=== PATIENT | female | born 1960 | race Caucasian/White ===

== ENCOUNTER 2016-08-05 20:47 | Emergency (ER) | payer OTHER ==
--- NOTE | ~2016-08-05 | CR63 ---
[facility]. [facility] A Service of [facility] & [facility] RADIOLOGY TEXT RESULTS PATIENT: SANDRA ANN LOCATION: SED : 56 UNIT #: [id number] AGE: [address]: Maverick Terrell MD SEX: F ORDER DR: [id number] [address] [id number] MR#: [id number] Acc #: [id number] NAME: SANDRA ANN : 1960 SEX: F STUDY DATE/TIME: 08/05/2016 21:24 UNIT: SED ROOM: STUDY DESCRIPTION: CR Chest 2 View Attending Physician: Maverick Terrell M.D. Ordering Physician: Maverick Terrell M.D. Primary Care Physician: Rita Holloway A.P.R.N. MEDICAL IMAGING REPORT This report is preliminary unless electronic signature is present. EXAM PA and lateral chest 2 views 08/05/2016 COMPARISON 11/07/2014. CLINICAL HISTORY Cough for 3 days. FINDINGS There is old granulomatous disease but no acute abnormality. There is no consolidation, effusion or pneumothorax or suspicious nodule. Heart size within normal limits. Dictated by... Rolando Araujo M.D. THIS IS AN ELECTRONICALLY VERIFIED REPORT Rolando Araujo M.D. at 08/08/2016 5:35 PM ORIANA/dread TD: 08/06/2016 06:30 JOB #: [id number] MEDICAL IMAGING REPORT Page 1 of 1
[~2016-08-05 20:47] MED LIST: ALBUTEROL17 GM INH; AMARYL2 MG PO; BACITRACIN OP3.5 GM OD; CITALOPRAM HBR40 MG PO; HYDROXYZINE HCL25 M1 PO; INVOKANA100 MG PO; LOPID600 MG PO; NEURONTIN800 MG PO; OMEPRAZOLE40 M1 PO; PERCOCET 10/31 UDTA1 PO; PRINIVIL40 MG PO
[2016-08-05] MEDS ORDERED: TRULICITY0.75 MG/0. SUBQ (20:59)
[2016-08-05] MEDS ORDERED: INVOKAMET XR 11 EAC1 PO (21:01)
[2016-08-05] MEDS ORDERED: PROZAC40 MG PO (21:01)
[2016-08-05] MEDS ORDERED: OMEGA-31000 M1 PO (21:02)
[2016-08-05] MEDS ORDERED: OMEPRAZOLE40 M1 PO ×2 (21:02→21:03)
[2016-08-05] MEDS ORDERED: AMARYL PO (21:02)
[2016-08-05] MEDS ORDERED: ROSUVASTATIN CA20 MG PO (21:03)
[2016-08-05] MEDS ORDERED: TRADJENTA5 MG PO (21:03)
[2016-08-05] MEDS ORDERED: GABAPENTIN800 MG PO (21:04)
[2016-08-05] MEDS ORDERED: ZYRTEC10 M1 PO (21:04)
[2016-08-05] MEDS ORDERED: ENDOCET 5-3251 EACH PO (21:05)
[2016-08-05] MEDS ORDERED: PRINIVIL40 MG PO (21:05)
[2016-08-05] MEDS ORDERED: HYDROXYZINE HCL25 M1 PO (21:06)
[2016-08-05] MEDS ORDERED: FENOFIBRATE160 MG PO (21:06)
== END 2016-08-05 22:45 | disposition home or self-care (01) ==
LOC: SED 20:47
DX: R05 Cough (principal); F41.9 Anxiety disorder, unspecified; F17.200 Nicotine dependence, unspecified, uncomplicated; Z90.710 Acquired absence of both cervix and uterus; Z79.899 Other long term (current) drug therapy
CPT/HCPCS: 71020; 99284